=== PATIENT | male | born 1995 | race Two or more races ===

== ENCOUNTER 2023-02-06 04:33 | Emergency (ER) | payer SELFPAY ==
[~2023-02-06] VITALS: Ht 172.7 cm; Wt 65.0 kg
[2023-02-06 04:34] VITALS: TEMP 98.6
[2023-02-06] MEDS ORDERED: METH4TAB3 PO (05:28)
[2023-02-06 07:31] VITALS: BP 132/76; PULSE 88; RESP 16
== END 2023-02-06 07:33 | disposition home or self-care (01) ==
LOC: EMS 04:36
DX: G51.0 Bell's palsy (principal)
CPT/HCPCS: 99283; Z7502